=== PATIENT | male | born 1980 | race African-American/Black ===

== ENCOUNTER 2016-05-01 09:10 | Emergency (ER) | payer OTHER ==
--- NOTE | 2016-05-01 10:17 | ER Document Report ---
ED Hand/Wrist Injury - General Chief Complaint: Hand Pain Stated Complaint: HAND NUMBNESS Notes: Patient says that he's been experiencing numbness and tingling of his right hand , like it feels when it "falls asleep", for the past 3 weeks. He says is been constant, every day, but is never had it before. No symptoms of the left arm or hand related to this visit. Patient has never been told he has carpal tunnel syndrome. Patient is a fat who just recently moved here and has an appointment for his first visit at the [facility] on May 13. He says he had severe injuries to his neck and lumbar back when in [place]. He has 4 herniated disc in his neck and also some in his lumbar region for which he had surgery and physical therapy for about a year. Patient is right-hand dominant. TRAVEL OUTSIDE OF THE [place] IN LAST 30 DAYS: No - Related Data Allergies/Adverse Reactions: No Known Allergies Allergy (Unverified 05/01/16 09:20) Past Medical History - Social History Smoking Status: Current Every Day Smoker Cigarette use (# per day): Yes Chew tobacco use (# tins/day): No Frequency of alcohol use: Occasional Drug Abuse: None Family History: Reviewed & Not Pertinent Patient has suicidal ideation: No Patient has homicidal ideation: No Psychiatric Medical History: Reports: Hx Depression - & anxiety Review of Systems - Review of Systems Notes: REVIEW OF SYSTEMS: CONSTITUTIONAL : Denies fever. EENT: Denies eye, ear, nose or mouth or throat pain or other symptoms. CARDIOVASCULAR: Denies chest pain. RESPIRATORY: Denies cough, chest congestion, or shortness of breath. GASTROINTESTINAL: Denies abdominal pain or nausea, vomiting, or diarrhea. GENITOURINARY: Denies difficulty or painful urinating, urinary frequency, blood in urine. MUSCULOSKELETAL: Has chronic neck and lower back pain. See history of present illness. See history of present illness. SKIN: Denies rash or skin lesions. NEUROLOGICAL: Denies LOC or altered mental status. Denies headache. Denies sensory loss or motor deficits. ALL OTHER SYSTEMS REVIEWED AND NEGATIVE. Physical Exam - Vital signs Vitals: Temp Pulse Resp BP Pulse Ox 98.0 F 72 16 145/94 H 99 05/01/16 09:19 05/01/16 09:19 05/01/16 09:19 05/01/16 09:19 05/01/16 09:19 Interpretation: Normal - Notes Notes: PHYSICAL EXAMINATION: GENERAL: Well-appearing, in no acute distress. Vital signs are normal. HEAD: Atraumatic, normocephalic. NECK: Normal range of motion, supple. LUNGS: Breath sounds clear and equal bilaterally. HEART: Regular rate and rhythm without murmurs. ABDOMEN: Soft, nontender. No guarding or rebound. EXTREMITIES: Normal range of motion without pain. Patient's right forearm is noticeably larger than the left forearm. He is right-hand dominant. He has normal capillary refill in fingertips of both hands. Good radial pulses bilaterally. NEUROLOGICAL: Normal speech, normal gait. Normal sensory, motor, and reflex exams. Awake, alert, and oriented x3. Cranial nerves normal. PSYCH: Normal mood, normal affect. SKIN: Warm, dry, no rashes. Course - Vital Signs Vital signs: Temp Pulse Resp BP Pulse Ox 98.2 F 83 16 145/86 H 97 05/01/16 10:31 05/01/16 10:31 05/01/16 10:31 05/01/16 10:31 05/01/16 10:31 Procedures - Immobilization Right Volar Wrist Pre-Proc Neuro Vasc Exam: Normal Immobilizer type: Cock-up Performed by: PCT Post-Proc Neuro Vasc Exam: Normal Discharge - Discharge Clinical Impression: Right hand paresthesia, Carpal tunnel syndrome of right wrist Condition: Stable Disposition: HOME, SELF-CARE Additional Instructions: Numbness or Paresthesia Definition: Numbness and tingling are decreased or abnormal sensations caused by altered sensory nerve function. Description: The feeling of having a foot "fall asleep" is a familiar one. This same combination of numbness and tingling can occur in any region of the body and may be caused by a wide variety of disorders. Sensations such as these , which occur without any associated stimulus, are called paresthesias. Other types of paresthesias include feelings of cold, warmth, burning, itching, and skin crawling. Causes: Sensation is carried to the brain by neurons (nerve cells) running from the outer parts of the body to the spinal cord in bundles called nerves. In the spinal cord, these neurons make connections with other neurons that run up to the brain. Paresthesias are caused by disturbances in the function of neurons in the sensory pathway. This disturbance can occur in the central nervous system (the brain and spinal cord), the nerve roots that are attached to the spinal cord, or the peripheral nervous system (nerves outside the brain and spinal cord). Peripheral disturbances are the most common cause of paresthesias. "Falling asleep" occurs when the blood supply to a nerve is cut off-a condition called ischemia. Ischemia usually occurs when an artery is compressed as it passes through a tightly flexed joint. Sleeping with the arms above the head or sitting with the legs tightly crossed frequently cause numbness and tingling. Direct compression of the nerve also causes paresthesias. Compression can be short-lived, as when a heavy backpack compresses the nerves passing across the shoulders. Compression may also be chronic. Chronic nerve compression occurs in entrapment syndromes. The most common example is carpal tunnel syndrome. Carpal tunnel syndrome occurs when the median nerve is compressed as it passes through a narrow channel in the wrist. Repetitive motion or prolonged vibration can cause the lining of the channel to swell and press on the nerve. Chronic nerve root compression, or radiculopathy, can occur in disk disease or spinal arthritis. Other causes of paresthesias related to disorders of the peripheral nerves include: * Metabolic or nutritional disturbances. These disturbances include diabetes, hypothyroidism (a condition caused by too little activity of the thyroid gland) , alcoholism, malnutrition, and vitamin B12 deficiency. Trauma. Trauma includes injuries that crush, sever, or pull on nerves. * Inflammation. * Connective tissue disease. These diseases include arthritis, systemic lupus erythematosus (a chronic inflammatory disease that affects many systems of the body, including the nervous system), polyarteritis nodosa (a vascular disease that causes widespread inflammation and ischemia of small and medium-size arteries), and Sj&ouml;gren's syndrome (a disorder marked by insufficient moisture in the tear ducts, salivary glands, and other glands). * Toxins. Toxins include heavy metals (metallic elements such as arsenic, lead, and mercury which can, in large amounts, cause poisoning), certain antibiotics and chemotherapy agents, solvents, and overdose of pyridoxine (vitamin B6). * Malignancy. * Infections. Infections include Lyme disease, human immunodeficiency virus (HIV ), and leprosy. * Hereditary disease. These diseases include Uqwkhbd-Rnnuv-Ljcrc disease (a hereditary disorder that causes wasting of the leg muscles, resulting in malformation of the foot), porphyria (a group of inherited disorders in which there is abnormally increased production of substances called porphyrins), and Yossi-Brown's syndrome (a hereditary disorder of the nerve root). Paresthesias can also be caused by central nervous system disturbances, including stroke, TIA (transient ischemic attack), tumor, trauma, multiple sclerosis, or infection. Symptoms: Sensory nerves supply or innervate particular regions of the body. Determining the distribution of symptoms is an important way to identify the nerves involved. For instance, the median nerve innervates the thumb, the first two fingers, half of the ring finger, and the part of the hand to which they connect. The ulnar nerve innervates the other half of the ring finger, the little finger, and the remainder of the hand. Distribution of symptoms may also aid diagnosis of the underlying disease. Diabetes usually causes a symmetrical "glove and stocking" distribution in the hands and feet. Multiple sclerosis may cause symptoms in several, widely areas. Other symptoms may accompany paresthesias, depending on the type and severity of the nerve disturbance. For instance, weakness may accompany damage to nerves that carry both sensory and motor neurons. (Motor neurons are those that carry messages outward from the brain.) Diagnosis: A careful history of the patient is needed for a diagnosis of paresthesias. The medical history should focus on the onset, duration, and location of symptoms. The history may also reveal current related medical problems and recent or past exposure to drugs, toxins, infection, or trauma. The family medical history may suggest a familial disorder. A work history may reveal repetitive motion, chronic vibration, or industrial chemical exposure. The physical and neurological examination tests for distribution of symptoms and alterations in reflexes, sensation, or strength. The distribution of symptoms may be mapped by successive stimulation over the affected area of the body. Lab tests for paresthesia may include blood tests and urinalysis to detect metabolic or nutritional abnormalities. Other tests are used to look for specific suspected causes. Nerve conduction velocity tests, electromyography, and imaging studies of the affected area may be employed. Nerve biopsy may be indicated in selected cases. Treatment: Treatment of paresthesias depends on the underlying cause. For limbs that have "fallen asleep," restoring circulation by stretching, exercising , or massaging the affected limb can quickly dissipate the numbness and tingling. If the paresthesia is caused by a chronic disease such as diabetes or occurs as a complication of treatments such as chemotherapy, most treatments are aimed at relieving symptoms. Anti-inflammatory drugs such as aspirin or ibuprofen are recommended if symptoms are mild. In more difficult cases, antidepressant drugs such as amitriptyline (Elavil) are sometimes prescribed. These drugs are given at a much lower dosage for this purpose than for relief of depression. They are thought to help because they alter the body's perception of pain. In severe cases, opium derivatives such as codeine can be prescribed. Currently trials are being done to determine whether treatment with human nerve growth factor will be effective in regenerating the damaged nerves. Alternative treatment: Several alternative treatments are available to help relieve symptoms of paresthesia. Nutritional therapy includes supplementation with B complex vitamins, especially vitamin B 12 (intramuscular injection of vitamin B12 is most effective). Vitamin supplements should be used cautiously however. Overdose of Vitamin B6 is one of the causes of paresthesias. People experiencing paresthesia should also avoid alcohol. Acupuncture and massage are said to relieve symptoms. Self-massage with aromatic oils is sometimes helpful. The application of topical ointments containing capsaicin, the substance that makes hot peppers hot, provides relief for some. It may also be helpful to wear loosely fitting shoes and clothing. None of these alternatives should be used in place of traditional therapy for the underlying condition. Prognosis: Treating the underlying disorder may reduce the occurrence of paresthesias. Paresthesias resulting from damaged nerves may persist throughout or even beyond the recovery period. The overall prognosis depends on the cause. Prevention: Preventing the underlying disorder may reduce the incidence of paresthesias. For those with frequent paresthesias caused by ischemia, changes in posture may help. Carpal Tunnel Syndrome Your examination suggests carpal tunnel syndrome. This syndrome is due to pressure on a nerve in the wrist. The pressure may be caused by an old injury, hard work using the wrist, work involving repeated motions of the hand, wrist positions that keep pressure on the joint, or arthritis in the wrist. Typical symptoms are tingling, numbness, and pain in the palm, thumb, index and middle fingers, and one side of the ring finger. Often a splint, ice packs, and antiinflammatory medication make the symptoms go away. If the physician feels that your problem is chronic, you will be referred to a specialist for further care. If symptoms do not go away, carpal tunnel syndrome may require surgery. You should call the doctor if pain increases, if you develop difficulty using the thumb or fingers, or if major swelling occurs. You're being provided with a splint to wear on your right wrist. It is recommended that you wear it at nighttime while sleeping and then during the day whenever you can to prevent excessive bending or flexion of the wrist. This is the first treatment for possible carpal tunnel syndrome. If this splint does not work to help your symptoms, follow-up at the [facility] for them to refer you to hand and wrist specialist for further evaluation. The ultimate treatment for carpal tunnel syndrome is surgery. Ibuprofen Ibuprofen is an excellent, safe drug for pain control. In addition, it has potent antiinflammatory effects which are beneficial, especially in the treatment of injuries, arthritis, or tendonitis. It's best to take ibuprofen with food. Persons with ulcer disease or allergy to aspirin should notify their physician of this before taking ibuprofen. Take the medication exactly as prescribed. Don't take additional doses unless instructed to do so by your doctor. If you develop wheezing, shortness of breath, hives, faintness, stomach pain, vomiting, or dark black stools, return for re-evaluation at once. FOLLOW-UP CARE: If you have been referred to a physician for follow-up care, call the physician s office for an appointment as you were instructed or within the next two days. If you experience worsening or a significant change in your symptoms, notify the physician immediately or return to the Emergency Department at any time for re-evaluation. If you develop white or cold, blue fingertips that do not resolve quickly and promptly, return to the emergency department immediately for us to reevaluate your condition. Referrals: [facility] [Provider Group] - Follow up as needed
[2016-05-01 10:32] VITALS: BP 145/86
== END 2016-05-01 10:34 | disposition home or self-care (01) ==
LOC: ER 09:10
DX: R20.2 Paresthesia of skin (principal); G56.01 Carpal tunnel syndrome, right upper limb; F17.210 Nicotine dependence, cigarettes, uncomplicated
CPT/HCPCS: 99284; L3984

== ENCOUNTER 2017-11-27 17:59 | Emergency (ER) | payer OTHER ==
[2017-11-27 18:29] VITALS: BP 120/70
--- NOTE | 2017-11-27 19:02 | ER Document Report ---
HPI - HPI Patient complains to provider of: rash Onset: Last week Pain Level: 2 Context: 37 yo male with hx of ecxema on forarms developed circular itchy rash left dorsal forearm that spread to the right. Antifungal cream did not help. No right forearm has some crusting and weeping. Associated Symptoms: None Exacerbated by: Denies Relieved by: Denies Past Medical History - General Information source: Patient - Social History Smoking Status: Unknown if Ever Smoked Lives with: Family Family History: Reviewed & Not Pertinent Renal/ Medical History: Denies: Hx Peritoneal Dialysis Psychiatric Medical History: Reports: Hx Depression - & anxiety Surgical Hx: Negative Vertical Provider Document - CONSTITUTIONAL Agree With Documented VS: Yes Exam Limitations: No Limitations General Appearance: No Apparent Distress - INFECTION CONTROL TRAVEL OUTSIDE OF THE [place] IN LAST 30 DAYS: No - MUSCULOSKELETAL/EXTREMETIES Musculoskeletal/Extremeties: MAEW - NEURO Level of Consciousness: Awake - DERM Integumentary: Rash - bilateral forearms with scaling rash various sizes that are roung, inflmaed boarders, right honey colored crust. No lymphangitis. Course - Vital Signs Vital signs: Temp Pulse Resp BP Pulse Ox 98.2 F 63 14 120/70 100 11/27/17 18:27 11/27/17 18:27 11/27/17 18:27 11/27/17 18:27 11/27/17 18:27 Discharge - Discharge Clinical Impression: Nummular eczematous dermatitis, Impetigo Condition: Good Disposition: HOME, SELF-CARE Instructions: Atopic Dermatitis (Eczema) ([facility]), Impetigo ([facility]), Steroid Medication Additional Instructions: see the apprentice painter brush , may need further testing to er any concerns Prescriptions: Cephalexin Monohydrate [Keflex 500 mg Capsule] 500 mg PO QID #28 capsule Prednisone [Deltasone 10 mg Tablet] 10 mg PO ASDIR PRN #21 tablet PRN Reason: Referrals: PILLO CHEEK DO [ACTIVE STAFF] - Follow up tomorrow (call for appt next week)
== END 2017-11-27 19:00 | disposition home or self-care (01) ==
LOC: ER 17:59
DX: L30.0 Nummular dermatitis (principal); L01.00 Impetigo, unspecified
CPT/HCPCS: 99282

== ENCOUNTER 2018-01-01 07:58 | Emergency (ER) | payer OTHER ==
[2018-01-01 08:05] VITALS: BP 124/78
--- NOTE | 2018-01-01 09:05 | ER Document Report ---
ED Skin Rash/Insect Bite/Abscs - General Chief Complaint: Abscess Stated Complaint: ABSCESS Time Seen by Provider: 01/01/18 08:34 Mode of Arrival: Ambulatory Information source: Patient, Relative Notes: Patient is a 37-year-old male comes to emergency room with complaint of having a possible "spider bite". Patient states that his girlfriend requires him to shave in the "nether regions". He states that when he shaves his face he gets little bumps that often turned to a little pimple and he popped some it goes away. He felt that this little bump in his right lower groin area was the same type of thing. He first noticed a small bump there 1 week ago after a couple of days it came to ahead and he popped it and he did get some pus out. He is kept using antibiotic cream on it his girlfriend is also added Trillium jelly to it and she brought him here because she felt that it was not just a "rising" . Or a "boil". Patient's girlfriend called the area of a crater. He denies any fevers. TRAVEL OUTSIDE OF THE [place] IN LAST 30 DAYS: No - HPI Patient complains to provider of: Skin rash/lesion - Raw reddened area 1 cm Onset: Last week Onset/Duration: Gradual Quality of pain: Dull Severity: Mild Pain Level: 1 Skin Character: Abscess, Lesion, Tenderness Skin Temperature: Warm Quality of rash: Painful Identify cause: No Exacerbated by: Denies Relieved by: Denies Similar symptoms previously: No - Related Data Allergies/Adverse Reactions: No Known Allergies Allergy (Verified 01/01/18 08:00) Past Medical History - Social History Smoking Status: Current Every Day Smoker Cigarette use (# per day): Yes - 1 pack/day Chew tobacco use (# tins/day): No Smoking Education Provided: Yes Frequency of alcohol use: Occasional Drug Abuse: None Family History: Reviewed & Not Pertinent Patient has suicidal ideation: No Patient has homicidal ideation: No Renal/ Medical History: Denies: Hx Peritoneal Dialysis Psychiatric Medical History: Reports: Hx Depression - & anxiety Review of Systems - Review of Systems Constitutional: No symptoms reported EENT: No symptoms reported Cardiovascular: No symptoms reported Respiratory: No symptoms reported Gastrointestinal: No symptoms reported Genitourinary: No symptoms reported Male Genitourinary: No symptoms reported Musculoskeletal: No symptoms reported Skin: Lesions Hematologic/Lymphatic: No symptoms reported Neurological/Psychological: No symptoms reported -: Yes All other systems reviewed and negative Physical Exam - Vital signs Vitals: Temp Pulse Resp BP Pulse Ox 98.0 F 75 20 124/78 99 01/01/18 08:03 01/01/18 08:03 01/01/18 08:03 01/01/18 08:03 01/01/18 08:03 Interpretation: Normal - Notes Notes: PHYSICAL EXAMINATION: GENERAL: Well-appearing, well-nourished and in no acute distress. HEAD: Atraumatic, normocephalic. EYES: Pupils equal round and reactive to light, extraocular movements intact, sclera anicteric, conjunctiva are normal. ENT: Nares patent, oropharynx clear without exudates. Moist mucous membranes. NECK: Normal range of motion, supple without lymphadenopathy LUNGS: Breath sounds clear to auscultation bilaterally and equal. No wheezes rales or rhonchi. HEART: Regular rate and rhythm without murmurs ABDOMEN: Soft, nontender, nondistended abdomen. No guarding, no rebound. No masses appreciated. Musculoskeletal: Normal range of motion, no pitting or edema. No cyanosis. NEUROLOGICAL: Cranial nerves grossly intact. Normal speech, normal gait. Normal sensory, motor exams PSYCH: Normal mood, normal affect. SKIN: Warm, Dry, normal turgor. Patient displays an area in his right lower groin is approximately 1 cm in total length and about 0.6cm there is a central wide. Opening that has started to close up but the area appears a little raw. Patient having dark skin the area appears to where he had expressed the pus out of opened up slightly and exposed the skin portion. It appears to remained irritated possibly from the petroleum jelly and slightly there is some erythema surrounding it that may be secondary cellulitis. Palpation of this area is tenderness but today there is no depth to the lesion therefore I do not believe any more residual pus. Course - Re-evaluation Re-evalutation: 01/01/18 09:09 Cellulitis appears to be a secondary diagnosis to the original cause which was probably a folliculitis/razor irritation. There is nothing to I&D at this point. I did try to express some more out by applying pressure and there was nothing. The rawness to the skin of believe is secondary to the irritation so I believe the cellulitis with the irritation will be treated with an antibiotic. I have informed him to continue to use Neosporintriple antibiotic knee area. We will also start him on a little oral medication which will be some Keflex. And some warm compresses. Patient is amendable to this as well as his girlfriend. - Vital Signs Vital signs: Temp Pulse Resp BP Pulse Ox 98.0 F 75 20 124/78 99 01/01/18 08:03 01/01/18 08:03 01/01/18 08:03 01/01/18 08:03 01/01/18 08:03 Discharge - Discharge Clinical Impression: Cellulitis of groin, right, Folliculitis barbae Condition: Stable Disposition: HOME, SELF-CARE Instructions: Abscess ([facility]), Cephalexin ([facility]), Cellulitis ([facility]) Additional Instructions: Home and continue to keep the area clean as possible. Apply an antibiotic type cream or ointment to the area. Starting you on some antibiotics as well. Should you have any concerns return to ER for recheck. Also you can use warm moist compresses this is a washrag as warm as you can stand it from the sink do not put in a microwave. With this being kind of open and raw appearing do not sit in a bathtub or do a whirlpool use moist heat but avoid submerging herself and those types of environments. If you should have any concerns or problems return to ER for a recheck. Prescriptions: Cephalexin Monohydrate [Keflex 500 mg Capsule] 500 mg PO Q6H 7 Days #28 capsule Forms: Return to Work, Elevated Blood Pressure Referrals: [facility] [NO LOCAL MD] - Follow up as needed
== END 2018-01-01 09:20 | disposition home or self-care (01) ==
LOC: ER 07:58
DX: L03.314 Cellulitis of groin (principal); L73.9 Follicular disorder, unspecified; F17.210 Nicotine dependence, cigarettes, uncomplicated
CPT/HCPCS: 99282